=== PATIENT | female | born 1955 | race Caucasian/White ===

== ENCOUNTER 2017-04-03 15:29 | Emergency (ER) | payer OTHER ==
[~2017-04-03] VITALS: Ht 165.1 cm; Wt 80.7 kg
[~2017-04-03 15:29] MED LIST: ASPI81TA19; BENI5TAB4 PO; CHOL50006; DIAZ10TA PO; OMEP20TA93 PO; PROC10TA PO; ZOFR4TAB3 SL; ZOLO50TA PO
[2017-04-03 15:59] VITALS: BP 133/79; PULSE 87; RESP 18; TEMP 98.5; O2SAT 98
[2017-04-03] MEDS ORDERED: FLINT2 CHEW (16:36)
[2017-04-03] MEDS ORDERED: COMPAZINE PO (16:36)
[2017-04-03] MEDS ORDERED: VITA200013 (16:36)
[2017-04-03] MEDS ORDERED: SODIUM CHLOR 0.9% 1000 ML INJ 1,000 ML IV SCH (16:38)
[2017-04-03] MEDS ORDERED: ONDANSETRON HCL 4 MG/2 ML VIAL IVP ONE (16:45)
[2017-04-03] MEDS ORDERED: DICYCLOMINE HCL 20 MG/2 ML VIAL IM ONE (16:45)
[2017-04-03] MEDS ORDERED: SODIUM CHLORIDE 0.9% FLUSH 10 ML FLUSH IV FLUSH PRN (16:45)
--- NOTE | 2017-04-03 16:45 | PD ---
HPI Chief Complaint: GI Complaint Time Seen by Provider: 16:29 Travel History International Travel<30 days: No Contact w/Intl Traveler<30days: No Traveled to known affect area: No History of Present Illness HPI This is a 61-year-old female who presents to the emergency department with nausea vomiting and diarrhea that started at 1 AM this morning, constant, severe , with loose stools every 2 hours and vomiting every hour. She also reports diffuse abdominal cramping. She says she's had some chills with this. This is similar to episode she's had earlier in the year. This happens to her every 4 months or so. She has seen a waste baler in the past and she was told she has Crohn's disease. She doesn't take anything for this. She's never had any abdominal surgeries. She also has had a green party yesterday where they were eating Thanksgiving leftovers and she thinks it's possible that she got food poisoning. PFSH Past Medical History Anxiety: Yes Cardiovascular Problems: Yes Diminished Hearing: No Fibromyalgia: Yes Gastrointestinal Disorders: Yes (CHRONS) Hypertension: Yes Immunizations Current: Yes ?: Not Menopausal: Yes : 1 Para: 1 Past Surgical History Section: Yes Social History Alcohol Use: No Tobacco Use: No Substance Use: No Allergies-Medications (Allergen,Severity, Reaction): Coded Allergies: No Known Allergies (Verified Adverse Reaction, Unknown, 04/03/17) Reported Meds & Prescriptions Reported Meds & Active Scripts Active Zofran Odt (Ondansetron Odt) 4 Mg Tab 4 Mg SL Q6HR PRN Reported Vitamin D (Cholecalciferol) 2,000 Unit Cap [place] Complete (Iron/Minerals/Multivitamins) 60 Mg Tab 1 Tab CHEW DAILY [Compazine] 10 Mg PO Aspir-Low (Aspirin) 81 Mg Tabdr 81 Prochlorperazine Maleate 10 Mg Tab 10 Mg PO DAILY PRN Benicar (Olmesartan) 5 Mg Tab 10 Mg PO DAILY Diazepam 10 Mg Tab 10 Mg PO BID PRN Zoloft (Sertraline HCl) 50 Mg Tab 50 Mg PO DAILY Review of Systems Except as stated in HPI: all other systems reviewed are Neg Physical Exam Narrative GENERAL:Well appearing, no acute distress SKIN: Focused skin assessment warm and dry. HEAD: Atraumatic. Normocephalic. EYES: Pupils equal and round. No injection or drainage. ENT: Dry mucous membranes. NECK: Trachea midline. CARDIOVASCULAR: Regular rate and rhythm. No murmur appreciated. RESPIRATORY: Clear to auscultation. Breath sounds equal bilaterally. GASTROINTESTINAL: Abdomen soft, diffusely tender to palpation with no rebound or guarding. MUSCULOSKELETAL: No obvious deformities. NEUROLOGICAL: Awake and alert. No obvious cranial nerve deficits. Moving all extremities. PSYCHIATRIC: Appropriate mood and affect; insight and judgment normal. Data Data Last Documented VS Vital Signs Date Time Temp Pulse Resp B/P (MAP) Pulse Ox O2 Delivery O2 Flow Rate FiO2 04/03/17 18:14 99 20 118/73 (88) 99 04/03/17 15:59 98.5 Orders Orders Complete Blood Count With Diff (04/03/17 16:38) Comprehensive Metabolic Panel (04/03/17 16:38) Lipase (04/03/17 16:38) Iv Access Insert/Monitor (04/03/17 16:38) Ecg Monitoring (04/03/17 16:38) Oximetry (04/03/17 16:38) Ondansetron Inj (Zofran Inj) (04/03/17 16:45) Sodium Chlor 0.9% 1000 Ml Inj (Ns 1000 M (04/03/17 16:38) Sodium Chloride 0.9% Flush (Ns Flush) (04/03/17 16:45) Dicyclomine Inj (Bentyl Inj) (04/03/17 16:45) Prochlorperazine Inj (Compazine Inj) (04/03/17 18:00) Morphine Inj (Morphine Inj) (04/03/17 18:00) Sodium Chlor 0.9% 1000 Ml Inj (Ns 1000 M (04/03/17 18:45) Labs Laboratory Tests Test 04/03/17 16:45 White Blood Count 9.7 TH/MM3 Red Blood Count 5.12 MIL/MM3 Hemoglobin 15.0 GM/DL Hematocrit 45.7 % Mean Corpuscular Volume 89.3 FL Mean Corpuscular Hemoglobin 29.3 PG Mean Corpuscular Hemoglobin Concent 32.8 % Red Cell Distribution Width 13.1 % Platelet Count 347 TH/MM3 Mean Platelet Volume 8.2 FL Neutrophils (%) (Auto) 76.6 % Lymphocytes (%) (Auto) 15.8 % Monocytes (%) (Auto) 6.8 % Eosinophils (%) (Auto) 0.4 % Basophils (%) (Auto) 0.4 % Neutrophils # (Auto) 7.5 TH/MM3 Lymphocytes # (Auto) 1.5 TH/MM3 Monocytes # (Auto) 0.7 TH/MM3 Eosinophils # (Auto) 0.0 TH/MM3 Basophils # (Auto) 0.0 TH/MM3 CBC Comment DIFF FINAL Differential Comment Blood Urea Nitrogen 14 MG/DL Creatinine 0.88 MG/DL Random Glucose 113 MG/DL Total Protein 7.8 GM/DL Albumin 3.9 GM/DL Calcium Level 9.2 MG/DL Alkaline Phosphatase 97 U/L Aspartate Amino Transf (AST/SGOT) 35 U/L Alanine Aminotransferase (ALT/SGPT) 28 U/L Total Bilirubin 0.4 MG/DL Sodium Level 137 MEQ/L Potassium Level 4.5 MEQ/L Chloride Level 102 MEQ/L Carbon Dioxide Level 27.0 MEQ/L Anion Gap 8 MEQ/L Estimat Glomerular Filtration Rate 66 ML/MIN Lipase 106 U/L MDM Medical Decision Making Medical Screen Exam Complete: Yes Emergency Medical Condition: Yes Medical Record Reviewed: Yes (patient has been seen here twice in the past year and a half in the setting of similar symptoms. She did a CT imaging which was nonspecific in January of last year.) Interpretation(s) Afebrile, no tachycardia, normotensive No leukocytosis Electrolytes are reassuring Lipase is normal Differential Diagnosis Gastroenteritis, dehydration, bowel obstruction, diverticulitis, C. difficile colitis Narrative Course This is a 61-year-old female who reports that she has a history of Crohn's disease who frequently comes to the emergency department for nausea vomiting and diarrhea. She went to a green party yesterday and ate Thanksgiving leftovers and has been sick since 1 AM. She has a benign abdomen on exam. Labs are reassuring with no leukocytosis. She is afebrile. I doubt a surgical etiology of her symptoms. She was given 2 L of IV fluid, antiemetics and pain control and she feels much better. I think she is appropriate for outpatient management. She did complete a recent course of antibiotics so C. difficile is certainly on the differential but I think in the setting of a normal white blood cell count and the presence of vomiting this is more likely to be gastroenteritis. Patient will be discharged home. Diagnosis Primary Impression: Gastroenteritis Patient Instructions: General Instructions Additional Instructions: If you develop severe or worsening abdominal pain, fever>100.4, persistent vomiting or inability to eat or drink return to the emergency department immediately. Follow up with your primary care physician in 1-2 days for a check-up. Med/Other Pt SpecificInfo: No Change to Meds Disposition: 01 DISCHARGE HOME Condition: Stable Kaley Seaman MD Apr 03, 2017 16:45
[2017-04-03 16:52] VITALS: O2SAT 96
[2017-04-03 17:03] VITALS: BP 111/67; PULSE 70; RESP 18; O2SAT 97
[2017-04-03 17:19] LABS: CHLORIDE 102 MEQ/L (98-107); SODIUM (NA) 137 MEQ/L (136-145)
[2017-04-03 17:20] LABS: AUTOMATED NEUTROPHIL # 7.5 TH/MM3 (1.8-7.7); BASOPHIL % 0.4 % (0.0-2.0); EOSINOPHIL % 0.4 % (0.0-4.0); HEMATOCRIT 45.7 % (35.0-46.0); LYMPH % 15.8 % (9.0-44.0); LYMPHOCYTE # 1.5 TH/MM3 (1.0-4.8); MEAN CELL VOLUME 89.3 FL (80.0-100.0); MEAN CORPUSCULAR HEMOGLOBIN 29.3 PG (27.0-34.0); MEAN CORPUSCULAR HGB CONC 32.8 % (32.0-36.0); MONO % 6.8 % (0.0-8.0); NEUT % 76.6 % (16.0-70.0); PLATELET COUNT 347 TH/MM3 (150-450); RED BLOOD COUNT 5.12 MIL/MM3 (4.00-5.30); RED CELL DISTRIBUTION WIDTH 13.1 % (11.6-17.2); WHITE BLOOD COUNT 9.7 TH/MM3 (4.0-11.0)
[2017-04-03 17:23] LABS: ANION GAP 8 MEQ/L (5-15); BLOOD UREA NITROGEN 14 MG/DL (7-18); HEMO FLAGS DIFF FINAL
[2017-04-03 17:26] LABS: ALT (GPT) 28 U/L (10-53); AST (GOT) 35 U/L (15-37); GLOMERULAR FILTRATION RATE 66 ML/MIN (>89)
[2017-04-03 17:27] LABS: POTASSIUM 4.5 MEQ/L (3.5-5.1); TOTAL BILIRUBIN ADULT 0.4 MG/DL (0.2-1.0)
[2017-04-03 17:29] LABS: ALKALINE PHOSPHATASE 97 U/L (45-117)
[2017-04-03] MEDS ORDERED: PROCHLORPERAZINE INJ 10 MG/2 ML VIAL IV PUSH ONE (18:00)
[2017-04-03] MEDS ORDERED: MORPHINE SULFATE 2 MG/ML INJ IV PUSH ONE (18:00)
[2017-04-03 18:14] VITALS: BP 118/73; PULSE 99; RESP 20; O2SAT 99
[2017-04-03] MEDS ORDERED: SODIUM CHLOR 0.9% 1000 ML INJ 1,000 ML IV ONE (18:45)
[2017-04-03 20:00] VITALS: BP 123/67; TEMP 98.4
== END 2017-04-03 20:13 | disposition home or self-care (01) ==
LOC: PHED 15:29
DX: K52.9 Noninfective gastroenteritis and colitis, unspecified (principal); R68.83 Chills (without fever); I10 Essential (primary) hypertension; Z86.59 Personal history of other mental and behavioral disorders; Z86.79 Personal history of other diseases of the circulatory system; Z87.39 Personal history of other diseases of the musculoskeletal system and connective tissue; Z87.19 Personal history of other diseases of the digestive system
CPT/HCPCS: 80053; 83690; 85025; 96361; 96372; 96374; 96375; 99284; J0500; J0780; J2270; J2405; J7030

== ENCOUNTER 2017-09-25 01:58 | Emergency (ER) | payer OTHER ==
[~2017-09-25] VITALS: Ht 165.1 cm; Wt 76.3 kg
[~2017-09-25 01:58] MED LIST changes: -CHOL50006; +COMPAZINE PO; +FLINT2 CHEW; -OMEP20TA93 PO; +VITA200013
[2017-09-25 02:03] VITALS: BP 160/89; PULSE 98; RESP 18; TEMP 98.2; O2SAT 95
[2017-09-25] MEDS ORDERED: SODIUM CHLOR 0.9% 1000 ML INJ 1,000 ML IV SCH (03:04)
--- NOTE | 2017-09-25 03:09 | PD ---
HPI Chief Complaint: Abdominal Pain Time Seen by Provider: 03:04 Travel History International Travel<30 days: No Contact w/Intl Traveler<30days: No Traveled to known affect area: No History of Present Illness HPI 61-year-old female presents to the emergency department by private transportation for evaluation of abdominal pain with vomiting. Patient states symptoms began around 7 PM. Patient states symptoms began after eating on avocado that she thought might not be fresh. Patient denies any fever or chills. Patient's had one loose stool that has been mucoid no gross blood. Patient reports history of Crohn's disease. Patient is scheduled to follow-up with rules examiner at the end of the month. Patient denies other concerns or complaints. Patient reports this is her third visit for the same type of presentation. No report of long-distance travel foreign travel or well water ingestion. PFSH Past Medical History Narrative Medical Anxiety hypertension fibromyalgia Crohn's no tobacco use no alcohol use no substance use; nursing notes reviewed Hx Anticoagulant Therapy: Yes (81mg ASA) Anxiety: Yes Cardiovascular Problems: Yes Diminished Hearing: No Fibromyalgia: Yes Gastrointestinal Disorders: Yes ([place]) Hypertension: Yes Immunizations Current: Yes Tetanus Vaccination: Unknown Influenza Vaccination: Yes ?: Not Menopausal: Yes : 1 Para: 1 Past Surgical History Section: Yes Social History Alcohol Use: No Tobacco Use: No Substance Use: No Allergies-Medications (Allergen,Severity, Reaction): Coded Allergies: No Known Allergies (Verified Adverse Reaction, Unknown, 09/25/17) Reported Meds & Prescriptions Reported Meds & Active Scripts Active Zofran Odt (Ondansetron Odt) 4 Mg Tab 4 Mg SL Q6HR PRN Zofran Odt (Ondansetron Odt) 4 Mg Tab 4 Mg SL Q6HR PRN Reported Vitamin D (Cholecalciferol) 2,000 Unit Cap [place] Complete (Iron/Minerals/Multivitamins) 60 Mg Tab 1 Tab CHEW DAILY [Compazine] 10 Mg PO Aspir-Low (Aspirin) 81 Mg Tabdr 81 Prochlorperazine Maleate 10 Mg Tab 10 Mg PO DAILY PRN Benicar (Olmesartan) 5 Mg Tab 10 Mg PO DAILY Zoloft (Sertraline HCl) 50 Mg Tab 50 Mg PO DAILY Review of Systems Except as stated in HPI: all other systems reviewed are Neg General / Constitutional: No: Fever, Chills HENT: No: Congestion Cardiovascular: No: Chest Pain or Discomfort Respiratory: No: Shortness of Breath Gastrointestinal: Positive: Nausea, Vomiting, Abdominal Pain, No: Diarrhea Genitourinary: No: Dysuria, Decreased Urinary Output Musculoskeletal: No: Myalgias, Arthralgias Skin: No Rash Neurologic: No: Weakness Psychiatric: No: Anxiety Hematologic/Lymphatic: No: Lymph Node Enlargement Physical Exam Narrative GENERAL: Well-developed well-nourished female no acute distress no respiratory distress SKIN: Warm and dry. HEAD: Normocephalic. EYES: No scleral icterus. No injection or drainage. NECK: Supple, trachea midline. No JVD or lymphadenopathy. CARDIOVASCULAR: Regular rate and rhythm without murmurs, gallops, or rubs. RESPIRATORY: Breath sounds equal bilaterally. No accessory muscle use. GASTROINTESTINAL: Abdomen soft, suprapubic tenderness, no guarding no rebound, no clinical Doshi sign, nondistended. MUSCULOSKELETAL: No cyanosis, or edema. BACK: Nontender without obvious deformity. No CVA tenderness. Data Data Last Documented VS Vital Signs Date Time Temp Pulse Resp B/P (MAP) Pulse Ox O2 Delivery O2 Flow Rate FiO2 09/25/17 05:51 86 16 106/59 (75) 94 09/25/17 05:23 Room Air 09/25/17 02:03 98.2 Orders Orders Complete Blood Count With Diff (09/25/17 03:04) Comprehensive Metabolic Panel (09/25/17 03:04) Lipase (09/25/17 03:04) Urinalysis - C+S If Indicated (09/25/17 03:04) Iv Access Insert/Monitor (09/25/17 03:04) Ecg Monitoring (09/25/17 03:04) Oximetry (09/25/17 03:04) Ondansetron Inj (Zofran Inj) (09/25/17 03:15) Sodium Chlor 0.9% 1000 Ml Inj (Ns 1000 M (09/25/17 03:04) Sodium Chloride 0.9% Flush (Ns Flush) (09/25/17 03:15) Morphine Inj (Morphine Inj) (09/25/17 03:15) Promethazine Inj (Phenergan Inj) (09/25/17 04:30) Sodium Chlor 0.9% 1000 Ml Inj (Ns 1000 M (09/25/17 04:30) Ketorolac Inj (Toradol Inj) (09/25/17 05:15) Pantoprazole Inj (Protonix Inj) (09/25/17 05:15) Morphine Inj (Morphine Inj) (09/25/17 05:15) Ed Discharge Order (09/25/17 05:14) Labs Laboratory Tests Test 09/25/17 02:50 09/25/17 04:25 White Blood Count 12.0 TH/MM3 Red Blood Count 4.98 MIL/MM3 Hemoglobin 14.4 GM/DL Hematocrit 44.1 % Mean Corpuscular Volume 88.5 FL Mean Corpuscular Hemoglobin 28.9 PG Mean Corpuscular Hemoglobin Concent 32.7 % Red Cell Distribution Width 12.9 % Platelet Count 403 TH/MM3 Mean Platelet Volume 8.5 FL Neutrophils (%) (Auto) 87.7 % Lymphocytes (%) (Auto) 8.8 % Monocytes (%) (Auto) 2.9 % Eosinophils (%) (Auto) 0.3 % Basophils (%) (Auto) 0.3 % Neutrophils # (Auto) 10.6 TH/MM3 Lymphocytes # (Auto) 1.1 TH/MM3 Monocytes # (Auto) 0.3 TH/MM3 Eosinophils # (Auto) 0.0 TH/MM3 Basophils # (Auto) 0.0 TH/MM3 CBC Comment DIFF FINAL Differential Comment Blood Urea Nitrogen 17 MG/DL Creatinine 0.79 MG/DL Random Glucose 152 MG/DL Total Protein 7.9 GM/DL Albumin 3.8 GM/DL Calcium Level 9.5 MG/DL Alkaline Phosphatase 94 U/L Aspartate Amino Transf (AST/SGOT) 48 U/L Alanine Aminotransferase (ALT/SGPT) 32 U/L Total Bilirubin 0.3 MG/DL Sodium Level 137 MEQ/L Potassium Level 4.7 MEQ/L Chloride Level 105 MEQ/L Carbon Dioxide Level 25.4 MEQ/L Anion Gap 7 MEQ/L Estimat Glomerular Filtration Rate 74 ML/MIN Lipase 51 U/L Urine Color YELLOW Urine Turbidity CLOUDY Urine pH 8.5 Urine Specific [place] 1.015 Urine Protein TRACE mg/dL Urine Glucose (UA) NEG mg/dL Urine Ketones 15 mg/dL Urine Occult Blood NEG Urine Nitrite NEG Urine Bilirubin NEG Urine Urobilinogen 0.2 MG/DL Urine Leukocyte Esterase NEG Urine RBC 0-2 /hpf Urine WBC 0-2 /hpf Urine Squamous Epithelial Cells 0-5 /hpf Urine Amorphous Sediment LARGE Urine Bacteria NONE /hpf Microscopic Urinalysis Comment CULT NOT INDICATED MDM Medical Decision Making Medical Screen Exam Complete: Yes Emergency Medical Condition: Yes Medical Record Reviewed: Yes Interpretation(s) CBC & BMP Diagram 09/25/17 02:50 Total Protein 7.9, Albumin 3.8, Calcium Level 9.5, Alkaline Phosphatase 94, Aspartate Amino Transf (AST/SGOT) 48 H, Alanine Aminotransferase (ALT/SGPT) 32, Total Bilirubin 0.3 Vital Signs Date Time Temp Pulse Resp B/P (MAP) Pulse Ox O2 Delivery O2 Flow Rate FiO2 09/25/17 03:45 85 16 136/76 (96) 94 Room Air 09/25/17 02:03 98.2 98 18 160/89 (112) 95 UA: grossly wnl Differential Diagnosis Abdominal pain, gastroenteritis, foodborne illness, gastritis, pancreatitis, enteritis, dehydration, UTI Narrative Course Patient placed on monitor IV access obtained specimens collected and sent for resulting patient administered Zofran 4 mg IV as well as 1 L normal saline and morphine 2 mg IV Patient resting comfortably At 5 AM patient is symptomatically improved Patient states nausea has decreased but does report that since she had multiple episodes of nausea at home seem to trigger her vertigo. Patient has history of recurrent vertigo. Patient is followed by neurologist for vertigo and states that she does not typically respond to Antivert/meclizine but does respond well to IM Phenergan. Patient also states she still feels mildly dehydrated so is requesting additional IV fluids Patient administered Phenergan 25 mg IV and additional liter of normal saline. Lab values are grossly normal range except for mild white count of 12,000 patient has been afebrile and denies any fever or chills and states symptoms began after eating and old avocado most likely this is not reflect acute intra- abdominal process and abdomen is soft without guarding rebound and no peritoneal signs. Urinalysis is resulted and found to be grossly within normal limits Patient states she feels clinically improved does have some mild headache after all of her vomiting everything else is settled down given one-time dose of Toradol 30 mg IV as well as morphine 2 mg IV and patient is stable for outpatient management. Patient is aware of plan and states she is improved and is desirous of being discharged home. Diagnosis Primary Impression: Gastroenteritis Additional Impression: Vertigo Referrals: Primary Care Physician call for appointment Patient Instructions: General Instructions Additional Instructions: Increase fluid hydration Follow clear liquid diet for next 12-24 hrs. advance diet as tolerated bland/ brat diet and regular diet avoiding fried and fatty foods Take Zofran as prescribed as needed for nausea and/or vomiting Monitor temperature for fever take acetaminophen/Tylenol every 4 hours as needed for fever 100.4F or greater Follow-up with your primary care provider call office in a.m. Return the emergency department for any concerns Med/Other Pt SpecificInfo: Prescription(s) given Scripts Ondansetron Odt (Zofran Odt) 4 Mg Tab 4 MG SL Q6HR Y for Nausea/Vomiting, #10 TAB 0 Refills Prov: Toña Rucker MD 09/25/17 Disposition: DISCHARGE HOME Condition: Stable Toña Rucker MD September 25, 2017 03:09
[2017-09-25] MEDS ORDERED: ONDANSETRON HCL 4 MG/2 ML VIAL IVP ONE (03:15)
[2017-09-25] MEDS ORDERED: SODIUM CHLORIDE 0.9% FLUSH 10 ML FLUSH IV FLUSH PRN (03:15)
[2017-09-25] MEDS ORDERED: MORPHINE SULFATE 2 MG/ML SYRINGE IV PUSH ONE ×2 (03:15→05:15)
[2017-09-25 03:30] LABS: AUTOMATED NEUTROPHIL # 10.6 TH/MM3 (1.8-7.7); BASOPHIL % 0.3 % (0.0-2.0); EOSINOPHIL % 0.3 % (0.0-4.0); HEMATOCRIT 44.1 % (35.0-46.0); HEMOGLOBIN 14.4 GM/DL (11.6-15.3); LYMPH % 8.8 % (9.0-44.0); LYMPHOCYTE # 1.1 TH/MM3 (1.0-4.8); MEAN CELL VOLUME 88.5 FL (80.0-100.0); MEAN CORPUSCULAR HEMOGLOBIN 28.9 PG (27.0-34.0); MEAN CORPUSCULAR HGB CONC 32.7 % (32.0-36.0); MEAN PLATELET VOLUME 8.5 FL (7.0-11.0); MONO % 2.9 % (0.0-8.0); MONOCYTE # 0.3 TH/MM3 (0-0.9); NEUT % 87.7 % (16.0-70.0); PLATELET COUNT 403 TH/MM3 (150-450); RED BLOOD COUNT 4.98 MIL/MM3 (4.00-5.30); RED CELL DISTRIBUTION WIDTH 12.9 % (11.6-17.2)
[2017-09-25 03:37] LABS: CHLORIDE 105 MEQ/L (98-107); SODIUM (NA) 137 MEQ/L (136-145)
[2017-09-25 03:40] LABS: CALCIUM 9.5 MG/DL (8.5-10.1)
[2017-09-25 03:41] LABS: ALBUMIN 3.8 GM/DL (3.4-5.0); BICARBONATE 25.4 MEQ/L (21.0-32.0); BLOOD UREA NITROGEN 17 MG/DL (7-18); GLUCOSE,RANDOM 152 MG/DL (74-106)
[2017-09-25 03:44] LABS: ALT (GPT) 32 U/L (10-53); AST (GOT) 48 U/L (15-37); CREATININE 0.79 MG/DL (0.50-1.00); GLOMERULAR FILTRATION RATE 74 ML/MIN (>89)
[2017-09-25 03:45] VITALS: BP 136/76; PULSE 85; RESP 16; O2SAT 94
[2017-09-25 03:45] LABS: TOTAL BILIRUBIN ADULT 0.3 MG/DL (0.2-1.0); TOTAL PROTEIN 7.9 GM/DL (6.4-8.2)
[2017-09-25 03:46] LABS: ALKALINE PHOSPHATASE 94 U/L (45-117)
[2017-09-25] MEDS ORDERED: PROMETHAZINE INJ 25 MG/ML VIAL IM ONE (04:30)
[2017-09-25] MEDS ORDERED: SODIUM CHLOR 0.9% 1000 ML INJ 1,000 ML IV ONE (04:30)
[2017-09-25 04:40] LABS: BILIRUBIN, URINE NEG (NEG); BLOOD, URINE NEG (NEG); GLUCOSE,URINE NEG (NEG); KETONE, URINE 15 mg/dL (NEG); NITRITE,URINE NEG (NEG); PH, URINE 8.5 (5.0-8.5); URINE COLOR YELLOW (YELLW/STRAW); URINE LEUKOCYTE ESTERASE NEG (NEG)
[2017-09-25 04:47] LABS: AMORPHOUS SEDIMENT, URINE LARGE; RBC, URINE 0-2 /hpf (0-3); SQUAMOUS EPITHELIAL CELL URINE 0-5 /hpf (0-5); WBC, URINE 0-2 /hpf (0-5)
[2017-09-25] MEDS ORDERED: KETOROLAC TROMETHAMINE 30 MG/ML (IVP) VIAL IV PUSH ONE (05:15)
[2017-09-25] MEDS ORDERED: PANTOPRAZOLE SODIUM 40 MG VIAL IV PUSH ONE (05:15)
[2017-09-25] MEDS ORDERED: ZOFR4TAB3 SL (05:17)
[2017-09-25 05:23] VITALS: BP 140/84; PULSE 88; RESP 16; O2SAT 97
[2017-09-25 05:51] VITALS: BP 106/59
== END 2017-09-25 05:54 | disposition home or self-care (01) ==
LOC: PHED 01:58
DX: K52.9 Noninfective gastroenteritis and colitis, unspecified (principal); R42 Dizziness and giddiness; K50.90 Crohn's disease, unspecified, without complications; M79.7 Fibromyalgia; I10 Essential (primary) hypertension; F41.9 Anxiety disorder, unspecified; Z79.82 Long term (current) use of aspirin
CPT/HCPCS: 80053; 81001; 83690; 85025; 96361; 96372; 96374; 96375; 96376; 99284; C9113; J1885; J2270; J2405; J2550; J7030